=== PATIENT | male | born 1960 | race African-American/Black ===

== ENCOUNTER 2016-08-30 14:38 | Emergency (ER) | payer MEDICAID ==
[2016-08-30] MEDS ORDERED: FAMOTIDINE INJ/PF 20 MG/2 ML SDV IV ONE (16:51)
--- NOTE | 2016-08-30 16:51 | ER Document Report ---
ED Medical Screen (RME) - General Mode of Arrival: Wheelchair Information source: Patient TRAVEL OUTSIDE OF THE [place] IN LAST 30 DAYS: No <TRINIDAD ALDANA - Last Filed: 08/30/16 17:16> <KATHERINE GAMBOA - Last Filed: 08/30/16 21:48> <EBER BRITT - Last Filed: 08/31/16 10:31> - General Chief Complaint: Rectal Bleeding Stated Complaint: STOOL PROBLEM Time Seen by Provider: 08/30/16 16:44 Notes: Patient is a 55 year old male that presents to the emergency department today with complaints of abdominal pain and rectal bleeding. Patient states that he has had multiple episodes of "liquid blood" approximately x20-30 times including x6 times since being here in the ED. Patient complains of mild epigastric abdominal pain as well. Patient denies any GI issues in the past. Patient complains of nausea but denies any constipation, usage of NSAIDs, EtOH, or history of liver disease. (TRINIDAD ALDANA) - Related Data Allergies/Adverse Reactions: No Known Allergies Allergy (Verified 08/30/16 14:49) Past Medical History - Past Medical History Cardiac Medical History: Denies: Hx Coronary Artery Disease, Hx Heart Attack, Hx Hypertension Pulmonary Medical History: Denies: Hx Asthma, Hx Bronchitis, Hx COPD, Hx Pneumonia Neurological Medical History: Denies: Hx Cerebrovascular Accident, Hx Seizures Renal/ Medical History: Denies: Hx Peritoneal Dialysis Musculoskeltal Medical History: Reports Hx Arthritis - Immunizations Hx Diphtheria, Pertussis, Tetanus Vaccination: Yes <TRINIDAD ALDANA - Last Filed: 08/30/16 17:16> Review of Systems - Review of Systems Gastrointestinal: See HPI, Abdominal pain, Nausea, Rectal bleeding <TRINIDAD ALDANA - Last Filed: 08/30/16 17:16> Physical Exam - Abdominal Distension: No distension Tenderness: Tender - epigastric Organomegaly: No organomegaly <TRINIDAD ALDANA - Last Filed: 08/30/16 17:16> Course <TRINIDAD ALDANA - Last Filed: 08/30/16 17:16> - Laboratory Result Diagrams: 08/30/16 17:00 08/30/16 17:00 <KATHERINE GAMBOA - Last Filed: 08/30/16 21:48> - Laboratory Result Diagrams: 08/30/16 17:00 08/30/16 17:00 <EBER BRITT - Last Filed: 08/31/16 10:31> - Re-evaluation Re-evalutation: 08/30/16 16:52 Presents emergency department chief complaint of epigastric abdominal pain and blood bloody stool. Patient states that 2 days ago he started having loose stool and he saw a little bit of dark red blood in it. At work today he started having increasing epigastric abdominal pain and then had 20-30 episodes of loose stool with dark red blood in it. He occasionally drinks alcohol but would not define himself as an alcoholic. He is not on any chronic medications nor does he have any hepatitis or liver problems that he knows of. He is not currently taking any [id number] anti-inflammatory medication or Goody powders. He denies being on any blood thinners. He is not having any chest pain shortness of breath flank pain or urinary symptoms. On examination he is well-appearing nontoxic slightly tachycardic normotensive. Mild epigastric abdominal tenderness without guarding rebound rigidity. No mass or hernias. Do an EKG, acute labs start and IV Pepcid and send him to the main side to be seen and evaluated for lower GI bleed. I personally performed the services described in the documentation reviewed the documentation recorded by my scribe in my presence and it accurately and completely records my words and actions (EBER BRITT) - Vital Signs Vital signs: Temp Pulse Resp BP Pulse Ox 97.6 F 98 17 129/85 H 99 08/30/16 22:06 08/30/16 22:06 08/30/16 22:06 08/30/16 22:06 08/30/16 22:06 - Laboratory Laboratory results interpreted by me: 08/30/16 08/30/16 08/30/16 17:00 17:00 20:12 WBC 14.8 H RBC 6.32 H MCV 79 L MCH 25.5 L RDW 15.5 H Seg Neutrophils % 79.1 H Lymphocytes % 11.4 L Absolute Neutrophils 11.7 H Total Bilirubin 1.4 H Alkaline Phosphatase 211 H Urine Ketones TRACE H Urine Blood SMALL H - EKG Interpretation by Me Additional EKG results interpreted by me: 08/30/16 17:15 sinus rhythm at [address] elevation or depression (EBER BRITT) Doctor's Discharge <TRINIDAD ALDANA - Last Filed: 08/30/16 17:16> <KATHERINE GAMBOA - Last Filed: 08/30/16 21:48> <EBER BRITT - Last Filed: 08/31/16 10:31> - Discharge Clinical Impression: Colitis Diarrhea Qualifiers: Diarrhea type: presumed infectious Qualified Code(s): A09 - Infectious gastroenteritis and colitis, unspecified Abdominal pain Qualifiers: Abdominal location: generalized Qualified Code(s): R10.84 - Generalized abdominal pain Diverticulosis Qualifiers: Diverticulosis site: diverticulosis of large intestine Diverticulosis bleeding : diverticulosis with bleeding Qualified Code(s): K57.31 - Diverticulosis of large intestine without perforation or abscess with bleeding Condition: Stable Disposition: HOME, SELF-CARE Instructions: Abdominal Pain ([facility]), Colitis, Nonspecific ([facility]) Additional Instructions: Return to the ED in case of fever, severe pain or severe bleeding. Do not drink alcohol while taking Flagyl antibiotic. Prescriptions: Hydrocodone/Acetaminophen [[place] 5-325 mg Tablet] 1 tab PO Q4HP PRN #20 tablet PRN Reason: Diphenoxylate HCl/Atrop Sulf [Lomotil 2.5 mg Tablet] 1 tab PO Q6HP PRN #30 tablet PRN Reason: Ciprofloxacin HCl [Cipro 500 mg Tablet] 500 mg PO BID #20 tablet Metronidazole [Flagyl 500 mg Tablet] 500 mg PO TID #30 tablet Forms: Return to Work Referrals: WILL TAPIA DO [Primary Care Provider] - Follow up as needed Scribe Documentation - Scribe Written by Lewise:: Judy Sandoval, 08/30/16 1722 acting as scribe for :: Juan Carlos <TRINIDAD ALDANA - Last Filed: 08/30/16 17:16>
[2016-08-30 17:30] LABS: ABSOLUTE BASOPHILS # (AUTO) 0.1 10^3/uL (0.0-0.2); ABSOLUTE EOSINOPHILS # (AUTO) 0.1 10^3/uL (0.0-0.6); ABSOLUTE LYMPHOCYTES (AUTO) 1.7 10^3/uL (0.5-4.7); ABSOLUTE MONOCYTES (AUTO) 1.2 10^3/uL (0.1-1.4); ABSOLUTE NEUT (AUTO) 11.7 10^3/uL (1.7-8.2); BASOPHILS % (AUTO) 0.5 % (0-2); HEMOGLOBIN 16.1 g/dL (13.5-17.0); HGB HCT DIFFERENCE -1.7; LYMPHOCYTES % (AUTO) 11.4 % (13-45); MEAN CORPUSCULAR HEMOGLOBIN 25.5 pg (27.0-33.4); MEAN CORPUSCULAR HGB CONC 32.2 g/dL (32.0-36.0); MEAN CORPUSCULAR VOLUME 79 fl (80-97); RED BLOOD COUNT 6.32 10^6/uL (4.35-5.55); RED CELL DISTRIBUTION WIDTH 15.5 % (11.5-14.0); SEGMENTED NEUTROPHILS % (AUTO) 79.1 % (42-78); WHITE BLOOD COUNT 14.8 10^3/uL (4.0-10.5)
[2016-08-30 17:49] LABS: ALANINE AMINOTRANSFERASE 45 U/L (21-72); ALBUMIN 4.3 g/dL (3.5-5.0); ALKALINE PHOSPHATASE 211 U/L (38-126); ANION GAP 14 (5-19); ASPARTATE AMINO TRANSFERASE 26 U/L (17-59); BILIRUBIN,DIRECT 0.4 mg/dL (0.0-0.4); BILIRUBIN,TOTAL 1.4 mg/dL (0.2-1.3); BLOOD UREA NITROGEN 12 mg/dL (7-20); CALCIUM 9.5 mg/dL (8.4-10.2); CARBON DIOXIDE 23 mmol/L (22-30); CHLORIDE 102 mmol/L (98-107); CREATINE KINASE 155 U/L (55-170); CREATININE RESULT 0.89 mg/dL (0.52-1.25); GLUCOSE 101 mg/dL (75-110); LIPASE 81.7 U/L (23-300); POTASSIUM 3.9 mmol/L (3.6-5.0); SODIUM 139.3 mmol/L (137-145); TOTAL PROTEIN 7.9 g/dL (6.3-8.2)
[2016-08-30 17:50] LABS: ALCOHOL < 10 mg/dL (NONE DETECTED)
[2016-08-30] MEDS ORDERED: NORMAL SALINE 1000 ML 1,000 ML IV ONE (18:03)
--- NOTE | 2016-08-30 18:09 | ER Document Report ---
ED General - General Chief Complaint: Rectal Bleeding Stated Complaint: STOOL PROBLEM Time Seen by Provider: 08/30/16 16:44 Mode of Arrival: Wheelchair Information source: Patient TRAVEL OUTSIDE OF THE [place] IN LAST 30 DAYS: No - HPI Notes: Patient is a 55-year-old male with no history of previous inflammatory bowel disease issues presents emergency department with report of a 2 day history of crampy abdominal pain and progressively watery and now bloody diarrhea that he has had with up to 30 bowel movements experience today. The patient reports no nausea or vomiting. He describes a very minimal back pain. He reports no recent foreign travel or antibiotics or exposures that he is aware of, although he states that the symptoms of crampy abdominal pain occurred 3 hours after eating a chicken dennis dish that he obtained from a restaurant. Patient reports that a year ago he had a episode of some mild diarrhea and pain but there was no blood associated with it. He denies any weight loss or medication changes. Patient states he had a colonoscopy 4 years ago which was negative. He is not on anti-inflammatories has no history of liver disease. He has city water. No other abnormal bleeding or bruising. - Related Data Allergies/Adverse Reactions: No Known Allergies Allergy (Verified 08/30/16 14:49) Past Medical History - General Information source: Patient - Social History Smoking Status: Never Smoker Frequency of alcohol use: Rare Drug Abuse: None Lives with: Family Family History: Reviewed & Not Pertinent Patient has suicidal ideation: No Patient has homicidal ideation: No - Past Medical History Cardiac Medical History: Denies: Hx Coronary Artery Disease, Hx Heart Attack, Hx Hypertension Pulmonary Medical History: Denies: Hx Asthma, Hx Bronchitis, Hx COPD, Hx Pneumonia Neurological Medical History: Denies: Hx Cerebrovascular Accident, Hx Seizures Renal/ Medical History: Denies: Hx Peritoneal Dialysis Musculoskeltal Medical History: Reports Hx Arthritis - Immunizations Hx Diphtheria, Pertussis, Tetanus Vaccination: Yes Review of Systems - Review of Systems Notes: REVIEW OF SYSTEMS: CONSTITUTIONAL : Denies fever, chills, or sweats. EENT: Denies eye, ear, throat, or mouth pain or symptoms. Denies nasal or sinus congestion or discharge. Denies throat, tongue, or mouth swelling or difficulty swallowing. CARDIOVASCULAR: Denies chest pain. Denies palpitations or racing or irregular heart beat. Denies ankle edema. RESPIRATORY: Denies cough, cold, or chest congestion. Denies shortness of breath, difficulty breathing, or wheezing. GASTROINTESTINAL: Reports mild distention. Denies nausea, vomiting. Denies blood in vomitus. Denies black, tarry stools. Denies constipation. GENITOURINARY: Denies difficulty urinating, painful urination, burning, frequency, blood in urine, or discharge. FEMALE GENITOURINARY: Denies vaginal bleeding, heavy or abnormal periods, irregular periods. Denies vaginal discharge or odor. MUSCULOSKELETAL: Denies back or neck pain or stiffness. Denies joint pain or swelling. SKIN: Denies rash, lesions or sores. HEMATOLOGIC : Denies easy bruising or bleeding. LYMPHATIC: Denies swollen, enlarged glands. NEUROLOGICAL: Denies confusion or altered mental status. Denies passing out or loss of consciousness. Denies dizziness or lightheadedness. Denies headache. Denies weakness or paralysis or loss of use of either side. Denies problems with gait or speech. Denies sensory loss, numbness, or tingling. Denies seizures. PSYCHIATRIC: Denies anxiety or stress. Denies depression, suicidal ideation, or homicidal ideation. No rectal pain or rectal intercourse. ALL OTHER SYSTEMS REVIEWED AND NEGATIVE. Dictation was performed using [employer] voice recognition software Physical Exam - Vital signs Vitals: Temp Pulse Resp BP Pulse Ox 97.8 F 100 16 131/91 H 97 08/30/16 14:49 08/30/16 14:49 08/30/16 14:49 08/30/16 14:49 08/30/16 14:49 - Notes Notes: PHYSICAL EXAMINATION: GENERAL: Well-appearing, well-nourished and in no acute distress. HEAD: Atraumatic, normocephalic. EYES: Pupils equal round and reactive to light, extraocular movements intact, sclera anicteric, conjunctiva are normal. ENT: Nares patent, oropharynx clear without exudates. Moist mucous membranes. NECK: Normal range of motion, supple without lymphadenopathy LUNGS: Breath sounds clear to auscultation bilaterally and equal. No wheezes rales or rhonchi. HEART: Regular rate and rhythm without murmurs ABDOMEN: Soft. Diffusely tender and mildly distended. Patient describes his pain is mainly in the periumbilical region. No masses appreciated. Negative Franklin's. Musculoskeletal: Normal range of motion, no pitting or edema. No cyanosis. NEUROLOGICAL: Cranial nerves grossly intact. Normal speech, normal gait. Normal sensory, motor exams PSYCH: Normal mood, normal affect. SKIN: Warm, Dry, normal turgor, no rashes or lesions noted. Course - Re-evaluation Re-evalutation: 08/30/16 21:10 There is no evidence for significant GI bleed or anemia, although the patient did have a small amount of bright red blood in a bowel movement specimen that was sent. There is no evidence for Clostridium difficile infection, and given the sudden onset of the symptoms, this fits more so with a bacterial etiology. Patient on repeat exam had significantly improved abdominal discomfort, and he requested to go home. There is diverticulosis noted on the CT scan, but no evidence for diverticulitis. No evidence for Aneurysm, perforation. Stool culture is pending on the patient. Ova and parasite exam is also pending. patient given Dilaudid and Zofran with adequate relief of his pain. Patient given Cipro, Flagyl, [place]. Unlikely an inflammatory bowel process, but the patient was told this cannot be completely excluded. 08/30/16 21:15 - Vital Signs Vital signs: Temp Pulse Resp BP Pulse Ox 97.9 F 87 16 112/67 93 08/30/16 18:54 08/30/16 18:54 08/30/16 18:54 08/30/16 18:54 08/30/16 18:54 - Laboratory Result Diagrams: 08/30/16 17:00 08/30/16 17:00 Laboratory results interpreted by me: 08/30/16 08/30/16 08/30/16 17:00 17:00 20:12 WBC 14.8 H RBC 6.32 H MCV 79 L MCH 25.5 L RDW 15.5 H Seg Neutrophils % 79.1 H Lymphocytes % 11.4 L Absolute Neutrophils 11.7 H Total Bilirubin 1.4 H Alkaline Phosphatase 211 H Urine Ketones TRACE H Urine Blood SMALL H Discharge - Discharge Clinical Impression: Colitis Diarrhea Qualifiers: Diarrhea type: presumed infectious Qualified Code(s): A09 - Infectious gastroenteritis and colitis, unspecified Abdominal pain Qualifiers: Abdominal location: generalized Qualified Code(s): R10.84 - Generalized abdominal pain Diverticulosis Qualifiers: Diverticulosis site: diverticulosis of large intestine Diverticulosis bleeding : diverticulosis with bleeding Qualified Code(s): K57.31 - Diverticulosis of large intestine without perforation or abscess with bleeding Condition: Stable Disposition: HOME, SELF-CARE Instructions: Abdominal Pain ([facility]), Colitis, Nonspecific ([facility]) Additional Instructions: Return to the ED in case of fever, severe pain or severe bleeding. Do not drink alcohol while taking Flagyl antibiotic. Prescriptions: Hydrocodone/Acetaminophen [[place] 5-325 mg Tablet] 1 tab PO Q4HP PRN #20 tablet PRN Reason: Diphenoxylate HCl/Atrop Sulf [Lomotil 2.5 mg Tablet] 1 tab PO Q6HP PRN #30 tablet PRN Reason: Ciprofloxacin HCl [Cipro 500 mg Tablet] 500 mg PO BID #20 tablet Metronidazole [Flagyl 500 mg Tablet] 500 mg PO TID #30 tablet Forms: Return to Work
[2016-08-30] MEDS ORDERED: HYDROMORPHONE HCL INJ/PF 2 MG/ML AMPULE IV ONE (18:14)
[2016-08-30] MEDS ORDERED: ONDANSETRON HCL INJ/PF 4 MG/2 ML SDV IV ONE (18:14)
[2016-08-30 18:59] LABS: PROTHROMBIN TIME 13.5 SEC (11.4-15.4)
[2016-08-30 20:43] LABS: APPEARANCE,URINE CLEAR; BILIRUBIN,URINE NEGATIVE (NEGATIVE); GLUCOSE, URINE NEGATIVE (NEGATIVE); KETONES,URINE TRACE mg/dL (NEGATIVE); LEUKOCYTE ESTERASE,URINE NEGATIVE (NEGATIVE); NITRITE,URINE NEGATIVE (NEGATIVE); PROTEIN,URINE NEGATIVE (NEGATIVE); URINE SPECIFIC GRAVITY 1.048; UROBILINOGEN,URINE NEGATIVE mg/dL (<2.0)
[2016-08-30] MEDS ORDERED: CIPROFLOXACIN HCL 750 MG TABLET PO ONE (21:05)
[2016-08-30] MEDS ORDERED: HYDROCODONE/ACETAMINOPHEN 5-325 MG 6 TAB/DSPK PO PRN (21:05)
[2016-08-30] MEDS ORDERED: METRONIDAZOLE 500 MG TABLET PO ONE (21:05)
[2016-08-30] MEDS ORDERED: DIPHENOXYLATE HCL/ATROP SULF 2.5-0.025 MG TABLET PO ONE (21:06)
[2016-08-30 22:25] VITALS: BP 129/85
--- NOTE | 2016-08-31 17:51 | EKG REPORT ---
SEVERITY:- BORDERLINE ECG - SINUS RHYTHM PROBABLE LEFT ATRIAL ABNORMALITY : Confirmed by: Shannan Aaron MD 31-Aug-2016 17:49:43
== END 2016-08-30 22:06 | disposition home or self-care (01) ==
LOC: ER 14:38
DX: A09 Infectious gastroenteritis and colitis, unspecified (principal); R10.84 Generalized abdominal pain; K57.31 Diverticulosis of large intestine without perforation or abscess with bleeding; K62.5 Hemorrhage of anus and rectum
CPT/HCPCS: 93005; 99284; 96361; 96374; 96375; 36415; 87045; 87205; 87209; 80307; 82550; 83690; 87177; 85025; 85610; 80053; 81001; 84484; 87493 ×2; 74177; 93010; J3490 ×2; J1170; J2405; J7030

== ENCOUNTER 2018-09-29 14:27 | Emergency (ER) | payer SELFPAY ==
[2018-09-29] MEDS ORDERED: KETOROLAC TROMETHAMINE 60 MG/2 ML SDV IM ONE (17:06)
[2018-09-29] MEDS ORDERED: MORPHINE SULFATE 10 MG/ML INJ IM ONE (17:07)
[2018-09-29] MEDS ORDERED: METHOCARBAMOL 750 MG TABLET PO ONE (17:07)
--- NOTE | 2018-09-29 17:51 | ER Document Report ---
HPI - HPI Time Seen by Provider: 09/29/18 16:09 Pain Level: 4 Notes: Patient is an otherwise healthy 57-year-old male male presented to the emergency department chief complaint of low back pain that started on Friday. Patient reports he was doing on his hands and knees cleaning his rugs prior to the pain starting. He states the pain runs across his low back and radiates down to his bilateral buttocks. He denies loss of control of bowel or bladder, denies any urinary retention, denies any saddle anesthesia or fever. Patient reports he has had flareups of low back pain in the past, states this is worse when he has had. Past Medical History - General Information source: Patient - Social History Smoking Status: Never Smoker Frequency of alcohol use: None Drug Abuse: None Family History: Reviewed & Not Pertinent - Past Medical History Cardiac Medical History: Denies: Hx Coronary Artery Disease, Hx Heart Attack, Hx Hypertension Pulmonary Medical History: Denies: Hx Asthma, Hx Bronchitis, Hx COPD, Hx Pneumonia Neurological Medical History: Denies: Hx Cerebrovascular Accident, Hx Seizures Renal/ Medical History: Denies: Hx Peritoneal Dialysis Musculoskeletal Medical History: Reports Hx Arthritis Surgical Hx: Negative - Immunizations Hx Diphtheria, Pertussis, Tetanus Vaccination: Yes Vertical Provider Document - CONSTITUTIONAL Notes: PHYSICAL EXAMINATION: GENERAL: Well-appearing, well-nourished and in no acute distress. HEAD: Atraumatic, normocephalic. EYES: Pupils equal round extraocular movements intact, conjunctiva are normal. ENT: Nares patent NECK: Normal range of motion LUNGS: No respiratory distress Musculoskeletal: Normal range of motion, tenderness to palpation to bilateral lumbar paraspinous muscles, no vertebral tenderness, step-off or deformity. NEUROLOGICAL: Normal speech, normal gait. PSYCH: Normal mood, normal affect. SKIN: Warm, Dry, normal turgor, no rashes or lesions noted. - INFECTION CONTROL TRAVEL OUTSIDE OF THE [place] IN LAST 30 DAYS: No Course - Re-evaluation Re-evalutation: 09/29/18 17:56 Presentation of a well appearing patient complaining of acute on chronic back pain. No rapid progression of symptoms, systemic symptoms including fevers, chills, weight loss, history of recent bacterial infection, bilateral symptoms, numbness, weakness, difficulty walking, urinary retention or bowel incontinence, personal history of cancer, immunosuppression, diabetes, known AAA, or history of IV drug use. Exam is without point tenderness over vertebral bodies, pulsatile abdominal mass, and patient has symmetric and intact lower extremity strength, sensation, and reflexes without clonus. 2+ symmetric medial malleolar and dorsalis pedis pulses Based on history and physical, I have a very low suspicion of a concerning etiology of pain including epidural compression syndrome, spinal infection, transverse myelitis, malignancy, abdominal aortic aneurysm, renal colic, acute lower extremity claudication, neurogenic claudication, ankylosing spondylitis, or other intra-abdominal process. Due to absence of concerning risk factors in history and physical as well as absence of rapidly progressive, severe, or bilateral symptoms, will defer imaging at this point. - Vital Signs Vital signs: Temp Pulse Resp BP Pulse Ox 98.1 F 100 18 130/81 H 97 09/29/18 14:38 09/29/18 14:38 09/29/18 14:38 09/29/18 14:38 09/29/18 14:38 Discharge - Discharge Clinical Impression: Low back pain with sciatica Qualifiers: Chronicity: acute Back pain laterality: bilateral Sciatica laterality: bilateral sciatica Qualified Code(s): M54.42 - Lumbago with sciatica, left side Condition: Stable Disposition: HOME, SELF-CARE Additional Instructions: You have been seen in the Emergency Department (ED) today for back pain. Your workup and exam have not shown any acute abnormalities and you are likely suffering from muscle strain or possible problems with your discs, but there is no treatment that will fix your symptoms at this time. Please take the medications that have been prescribed as directed. You should also purchase a local lidocaine cream such as "aspercreme with lidocaine" and use per bottle instructions to the affected area. Apply heat to the area as often as you are able. Continue to keep active and avoid prolonged periods of bed rest. Please follow up with your doctor as soon as possible regarding today's ED visit and your back pain. Return to the ED for worsening back pain, fever, weakness or numbness of either leg, or if you develop either (1) an inability to urinate or have bowel movements, or (2) loss of your ability to control your bathroom functions (if you start having "accidents"), or if you develop other new symptoms that concern you.concern you. Prescriptions: Ibuprofen [Motrin 800 mg Tablet] 800 mg PO Q8H PRN #30 tab PRN Reason: Methocarbamol [Robaxin 750 mg Tablet] 750 mg PO ASDIR PRN #40 tablet PRN Reason:
[2018-09-29 18:12] VITALS: BP 105/67
== END 2018-09-29 18:12 | disposition home or self-care (01) ==
LOC: ER 14:27
DX: M54.42 Lumbago with sciatica, left side (principal)
CPT/HCPCS: 99283; 96372; J1885; J3490; J2270